=== PATIENT | female | born 1985 | race Caucasian/White ===

== ENCOUNTER → 2017-04-11 | Outpatient (CLI) | payer OTHER ==
[~2017-04-11] MED LIST: ANAPROX DS550 MG PO; BIRTH CONTROL1 EAC1 PO; CARAFATE1 G1 PO; CEFDINIR300 MG PO; ENSKYCE 28 TAB1 EACH PO; MACROBID100 M1 PO; MEDROL DOSEPAK4 MG PO; OMEPRAZOLE40 MG PO; PROVENTIL0.09 MG/A1 INH
[2017-04-11 13:38] LABS: HEMATOCRIT 39.7 % (37.0-47.0); MEAN CELL VOLUME 83.9 fl (81.0-99.0); MEAN CORPUSCULAR HGB 27.5 pg (27.0-31.0); MEAN CORPUSCULAR HGB CONC 32.7 g/dl (33.0-37.0); MEAN PLATELET VOLUME 11.6 fl (9.6-12.3); RED BLOOD COUNT 4.73 10*6/uL (4.10-5.10); RED CELL DISTRI WIDTH 13.6 % (0-14.5); WHITE BLOOD COUNT 6.8 10*3/uL (4.8-10.8)
[2017-04-11 13:57] LABS: HEMOGLOBIN A1c 5.4 % (4.8-5.6)
[2017-04-11 14:06] LABS: ALBUMIN 3.8 gm/dl (3.1-4.5); ALKALINE PHOSPHATASE 53 U/L (45-117); BILIRUBIN, TOTAL 0.3 mg/dl (0.2-1.0); BUN 13 mg/dl (7-24); CARBON DIOXIDE 27 mmol/L (21-32); CHLORIDE 110 mmol/L (98-107); EST GLOM FILT AFRICAN AMERICAN > 60 ml/min; GLUCOSE 79 mg/dL (65-99); POTASSIUM 4.2 mmol/L (3.5-5.1); SGOT/AST 10 IU/L (3-35); SGPT/ALT 16 U/L (12-78); SODIUM 140 mmol/L (136-145); TOTAL PROTEIN 7.1 gm/dL (6.4-8.2)
== END | disposition home or self-care (01) ==
LOC: LAB 12:24
PROVIDERS: Family Medicine
DX: F41.1 Generalized anxiety disorder (principal); R63.5 Abnormal weight gain; R53.83 Other fatigue; R79.89 Other specified abnormal findings of blood chemistry

== ENCOUNTER → 2017-05-27 | Outpatient (CLI) | payer OTHER | END | disposition home or self-care (01) | LOC: RAD 07:51 | DX: K21.9 Gastro-esophageal reflux disease without esophagitis (principal) ==

== ENCOUNTER → 2018-03-13 | Outpatient (CLI) | payer OTHER | END | disposition home or self-care (01) | LOC: ORTHO 03:27 | DX: M25.562 Pain in left knee (principal) ==

== ENCOUNTER 2018-06-07 20:29 | Emergency (ER) | payer OTHER ==
[~2018-06-07] VITALS: Ht 147.3 cm; Wt 63.5 kg
[2018-06-07] MEDS ORDERED: CEFADROXIL500 M1 PO (21:31)
== END 2018-06-07 21:57 | disposition home or self-care (01) ==
LOC: ED 20:29
DX: S61.412A Laceration without foreign body of left hand, initial encounter (principal); Z79.899 Other long term (current) drug therapy; Z79.2 Long term (current) use of antibiotics; W26.0XXA Contact with knife, initial encounter; Y93.89 Activity, other specified; Y92.89 Other specified places as the place of occurrence of the external cause; Y99.8 Other external cause status

== ENCOUNTER → 2018-08-11 | Outpatient (CLI) | payer OTHER ==
[~2018-08-11] MED LIST changes: +CEFADROXIL500 M1 PO
[2018-08-11 12:30] LABS: HEMATOCRIT 38.6 % (37.0-47.0); HEMOGLOBIN 12.8 g/dl (12.0-16.0); MEAN CELL VOLUME 83.9 fl (81.0-99.0); MEAN CORPUSCULAR HGB 27.8 pg (27.0-31.0); MEAN CORPUSCULAR HGB CONC 33.2 g/dl (33.0-37.0); MEAN PLATELET VOLUME 10.8 fl (9.6-12.3); RED BLOOD COUNT 4.6 10*6/uL (4.10-5.10); RED CELL DISTRI WIDTH 13.5 % (0-14.5); WHITE BLOOD COUNT 7.1 10*3/uL (4.8-10.8)
[2018-08-11 13:03] LABS: ALBUMIN 3.4 gm/dl (3.1-4.5); ALKALINE PHOSPHATASE 59 U/L (45-117); BUN 11 mg/dl (7-24); CHLORIDE 109 mmol/L (98-107); CHOLESTEROL 146 mg/dL (<200); CREATININE 0.86 mg/dL (0.55-1.02); HDL CHOLESTEROL 40 mg/dl (40-60); LDL CHOLESTEROL 58 mg/dL (9-159); POTASSIUM 4.1 mmol/L (3.5-5.1); SGOT/AST 11 IU/L (3-35); SGPT/ALT 21 U/L (12-78); SODIUM 139 mmol/L (136-145); TOTAL PROTEIN 7.4 gm/dL (6.4-8.2); TRIGLYCERIDES 238 mg/dl (<150); VLDL CHOLESTEROL 48 mg/dL (6-40)
== END | disposition home or self-care (01) ==
LOC: LAB 12:10
PROVIDERS: Family Medicine
DX: Z13.220 Encounter for screening for lipoid disorders (principal); R06.83 Snoring; R53.83 Other fatigue; R63.5 Abnormal weight gain

== ENCOUNTER → 2019-05-28 | Outpatient (CLI) | payer OTHER | END | disposition home or self-care (01) | LOC: RAD 16:32 | DX: M54.5 Low back pain (principal); M54.6 Pain in thoracic spine ==

== ENCOUNTER → 2020-02-21 | Outpatient (CLI) | payer OTHER ==
[2020-02-21 08:24] LABS: HEMATOCRIT 40.3 % (37.0-47.0); MEAN CELL VOLUME 80.9 fl (81.0-99.0); MEAN CORPUSCULAR HGB 26.5 pg (27.0-31.0); MEAN CORPUSCULAR HGB CONC 32.8 g/dl (33.0-37.0); MEAN PLATELET VOLUME 10.4 fl (9.6-12.3); RED BLOOD COUNT 4.98 10*6/uL (4.10-5.10); RED CELL DISTRI WIDTH 13.8 % (0-14.5); WHITE BLOOD COUNT 7.4 10*3/uL (4.8-10.8)
[2020-02-21 09:04] LABS: ALBUMIN 3.5 gm/dl (3.1-4.5); ALKALINE PHOSPHATASE 81 U/L (45-117); BUN 14 mg/dl (7-24); CHLORIDE 110 mmol/L (98-107); CHOLESTEROL 139 mg/dL (<200); CREATININE 0.75 mg/dL (0.55-1.02); FREE T4 1.01 ng/dl (0.76-1.46); HDL CHOLESTEROL 27 mg/dl (40-60); LDL CHOLESTEROL 50 mg/dL (9-159); SGOT/AST 7 IU/L (3-35); SGPT/ALT 22 U/L (12-78); SODIUM 142 mmol/L (136-145); TOTAL PROTEIN 7.6 gm/dL (6.4-8.2); TRIGLYCERIDES 312 mg/dl (<150); VLDL CHOLESTEROL 62 mg/dL (6-40)
[2020-02-21 09:14] LABS: VITAMIN D, 25-HYDROXY 22.9 ng/mL (30-100)
== END | disposition home or self-care (01) ==
LOC: LAB 08:05
PROVIDERS: Family Medicine
DX: Z13.220 Encounter for screening for lipoid disorders (principal); R53.83 Other fatigue; D64.9 Anemia, unspecified; E55.9 Vitamin D deficiency, unspecified; K21.9 Gastro-esophageal reflux disease without esophagitis

== ENCOUNTER → 2020-12-31 | Outpatient (CLI) | payer OTHER ==
[2020-12-31 09:08] LABS: HEMATOCRIT 40.2 % (37.0-47.0); MEAN CELL VOLUME 80.1 fl (81.0-99.0); MEAN CORPUSCULAR HGB 26.7 pg (27.0-31.0); MEAN CORPUSCULAR HGB CONC 33.3 g/dl (33.0-37.0); MEAN PLATELET VOLUME 10.6 fl (9.6-12.3); RED BLOOD COUNT 5.02 10*6/uL (4.10-5.10); RED CELL DISTRI WIDTH 13.7 % (0-14.5); WHITE BLOOD COUNT 7.2 10*3/uL (4.8-10.8)
[2020-12-31 09:26] LABS: ALBUMIN 3.6 gm/dl (3.1-4.5); ALKALINE PHOSPHATASE 73 U/L (45-117); BUN 11 mg/dl (7-24); CHLORIDE 109 mmol/L (98-107); CHOLESTEROL 149 mg/dL (<200); CREATININE 0.85 mg/dL (0.55-1.02); LDL CHOLESTEROL 75 mg/dL (9-159); POTASSIUM 4.1 mmol/L (3.5-5.1); SGOT/AST 15 IU/L (3-35); SGPT/ALT 21 U/L (12-78); SODIUM 140 mmol/L (136-145); TOTAL PROTEIN 7.7 gm/dL (6.4-8.2); TRIGLYCERIDES 188 mg/dl (<150)
== END | disposition home or self-care (01) ==
LOC: LAB 08:52
PROVIDERS: ATTEND Nurse Practitioner Family
DX: E78.00 Pure hypercholesterolemia, unspecified (principal); E55.9 Vitamin D deficiency, unspecified; R73.03 Prediabetes

== ENCOUNTER → 2021-03-30 | Outpatient (CLI) | payer OTHER | END | disposition home or self-care (01) | LOC: LAB 13:54 | PROVIDERS: ATTEND Family Medicine | DX: F32.9 Major depressive disorder, single episode, unspecified (principal); F41.9 Anxiety disorder, unspecified; R53.83 Other fatigue; G47.9 Sleep disorder, unspecified ==

== ENCOUNTER → 2021-07-06 | Outpatient (CLI) | payer OTHER ==
[~2021-07-06] MED LIST changes: +PROZAC40 M1 PO
== END | disposition home or self-care (01) ==
LOC: COVID19 15:26
PROVIDERS: ATTEND Internal Medicine
DX: Z11.52 Encounter for screening for COVID-19 (principal)

== ENCOUNTER 2021-08-19 19:43 | Emergency (ER) | payer OTHER ==
[~2021-08-19] VITALS: Ht 147.3 cm; Wt 56.7 kg
[2021-08-19 21:20] LABS: BASO % 0.5 % (0.0-1.0); EOS % 0.7 % (1.0-4.0); HEMATOCRIT 38.8 % (37.0-47.0); LYMPH # 0.6 10*3/uL (1.3-4.4); LYMPH % 14.4 % (27.0-41.0); MEAN CELL VOLUME 82.9 fl (81.0-99.0); MEAN CORPUSCULAR HGB 27.4 pg (27.0-31.0); MEAN PLATELET VOLUME 10.4 fl (9.6-12.3); MONO # 0.6 10*3/uL (0.1-1.0); MONO % 13.8 % (3.0-9.0); NEUT # 3.1 10*3/uL (2.3-7.9); NEUT % 70.1 % (47.0-73.0); PLATELET COUNT AUTOMATED 148 10*3/uL (130-400); RED BLOOD COUNT 4.68 10*6/uL (4.10-5.10); RED CELL DISTRI WIDTH 13.5 % (0-14.5); WHITE BLOOD COUNT 4.4 10*3/uL (4.8-10.8)
[2021-08-19 21:35] LABS: ALBUMIN 3.9 gm/dl (3.1-4.5); ALKALINE PHOSPHATASE 74 U/L (45-117); BUN 7 mg/dl (7-24); CHLORIDE 107 mmol/L (98-107); POTASSIUM 3.7 mmol/L (3.5-5.1); SGOT/AST 41 IU/L (3-35); SGPT/ALT 86 U/L (12-78); SODIUM 139 mmol/L (136-145); TOTAL PROTEIN 7.5 gm/dL (6.4-8.2)
[2021-08-19 21:37] LABS: B-hCG (QUALITATIVE) NEGATIVE (NEGATIVE)
[2021-08-19 22:30] LABS: BILIRUBIN Negative (Negative); BLOOD Negative (Negative); CLARITY Clear (Clear); COLOR Yellow (Yellow); GLUCOSE Negative (Negative); KETONE Negative (Negative); LEUKO ESTERASE Trace (Negative); NITRITE Negative (Negative); PH 6.5 (4.5-8.0); SPECIFIC GRAVITY <= 1.005 (1.001-1.030); UROBILINOGEN 0.2 E.U./dl (0.0-1.0)
== END 2021-08-19 23:23 | disposition home or self-care (01) ==
LOC: ED 19:43
PROVIDERS: Emergency Medicine
DX: U07.1 COVID-19 (principal)

== ENCOUNTER → 2021-08-19 | Outpatient (CLI) | payer OTHER | END | disposition home or self-care (01) | LOC: COVID19 16:05 | PROVIDERS: ATTEND Internal Medicine | DX: Z20.822 Contact with and (suspected) exposure to COVID-19 (principal) ==

== ENCOUNTER → 2022-02-10 | Outpatient (CLI) | payer OTHER ==
[2022-02-10 17:37] LABS: HEMATOCRIT 40.8 % (37.0-47.0); MEAN CELL VOLUME 81.9 fl (81.0-99.0); MEAN CORPUSCULAR HGB 26.5 pg (27.0-31.0); MEAN CORPUSCULAR HGB CONC 32.4 g/dl (33.0-37.0); MEAN PLATELET VOLUME 10.4 fl (9.6-12.3); RED BLOOD COUNT 4.98 10*6/uL (4.10-5.10); RED CELL DISTRI WIDTH 14.4 % (0-14.5); WHITE BLOOD COUNT 9.5 10*3/uL (4.8-10.8)
[2022-02-10 17:58] LABS: ALKALINE PHOSPHATASE 65 U/L (45-117); BUN 20 mg/dl (7-24); CHLORIDE 109 mmol/L (98-107); CHOLESTEROL 161 mg/dL (<200); CREATININE 0.71 mg/dL (0.55-1.02); LDL CHOLESTEROL 98 mg/dL (9-159); SGOT/AST 23 IU/L (3-35); SGPT/ALT 73 U/L (12-78); SODIUM 139 mmol/L (136-145); TOTAL PROTEIN 7.6 gm/dL (6.4-8.2); TRIGLYCERIDES 71 mg/dl (<150)
[2022-02-10 18:06] LABS: FREE T4 0.78 ng/dl (0.76-1.46)
[2022-02-10 19:50] LABS: VITAMIN D, 25-HYDROXY 24.6 ng/mL (30-100)
== END | disposition home or self-care (01) ==
LOC: LAB 17:19
PROVIDERS: ATTEND Family Medicine
DX: Z00.00 Encounter for general adult medical examination without abnormal findings (principal); G62.9 Polyneuropathy, unspecified

== ENCOUNTER → 2022-11-09 | Outpatient (CLI) | payer OTHER ==
[2022-11-09 12:16] LABS: HEMATOCRIT 41.5 % (37.0-47.0); MEAN CORPUSCULAR HGB 25.6 pg (27.0-31.0); MEAN PLATELET VOLUME 10.7 fl (9.6-12.3); RED BLOOD COUNT 5.19 10*6/uL (4.10-5.10); RED CELL DISTRI WIDTH 15.1 % (0-14.5); WHITE BLOOD COUNT 6.8 10*3/uL (4.8-10.8)
[2022-11-09 12:32] LABS: ALKALINE PHOSPHATASE 75 U/L (46-116); BUN 12 mg/dl (9-23); CHLORIDE 108 mmol/L (98-107); CHOLESTEROL 169 mg/dL (<200); LDL CHOLESTEROL 103 mg/dL (9-159); POTASSIUM 4.2 mmol/L (3.4-5.1); SGPT/ALT 49 U/L (10-49); TOTAL PROTEIN 7.5 gm/dL (6.0-8.0); TRIGLYCERIDES 122 mg/dl (<150)
[2022-11-11 00:06] LABS: FACTOR V ACTIVITY 91 % (70-150); PROTEIN S, FREE 86 % (61-136); PROTEIN S, TOTAL 63 % (60-150)
[2022-11-12 07:07] LABS: PROTEIN C, ANTIGEN 115 % (60-150)
== END | disposition home or self-care (01) ==
LOC: LAB 11:42
PROVIDERS: ATTEND Family Medicine
DX: S04.012A Injury of optic nerve, left eye, initial encounter (principal); Z13.220 Encounter for screening for lipoid disorders; F41.1 Generalized anxiety disorder; E74.00 Glycogen storage disease, unspecified; H47.10 Unspecified papilledema; X58.XXXA Exposure to other specified factors, initial encounter; Y93.89 Activity, other specified; Y92.89 Other specified places as the place of occurrence of the external cause; Y99.8 Other external cause status

== ENCOUNTER → 2022-11-17 | Outpatient (CLI) | payer OTHER | LOC: ORTHO 02:00 | PROVIDERS: ATTEND Orthopaedic Surgery | DX: M79.641 Pain in right hand (principal) ==

== ENCOUNTER → 2022-11-22 | Outpatient (CLI) | payer OTHER | END | disposition home or self-care (01) | LOC: MRI 12:46 | PROVIDERS: ATTEND Family Medicine | DX: G93.2 Benign intracranial hypertension (principal); H53.122 Transient visual loss, left eye; H47.13 Papilledema associated with retinal disorder ==

== ENCOUNTER → 2023-04-06 | Day surgery (SDC) | payer OTHER ==
[2023-04-05 14:04] VITALS: BP 121/74
[~2023-04-06] VITALS: Ht 147.3 cm; Wt 68.0 kg
[~2023-04-06] MED LIST changes: +LOSARTAN POTAS100 M1 PO; +TRAMADOL HCL50 MG PO; +VIBRAMYCIN HYC100 MG PO; +XARELTO10 MG PO
[2023-04-06 10:26] VITALS: BP 134/67
[2023-04-06 13:40] VITALS: BP 137/70
[2023-04-06 13:54] VITALS: BP 122/65
[2023-04-06 14:10] VITALS: BP 122/76
[2023-04-06 14:25] VITALS: BP 115/66
[2023-04-06 14:40] VITALS: BP 111/61
== END | disposition home or self-care (01) ==
LOC: SDC 04-05 13:15
PROVIDERS: ATTEND Podiatrist
DX: S82.851A Displaced trimalleolar fracture of right lower leg, initial encounter for closed fracture (principal); K21.9 Gastro-esophageal reflux disease without esophagitis; G43.909 Migraine, unspecified, not intractable, without status migrainosus; I10 Essential (primary) hypertension; F41.9 Anxiety disorder, unspecified; F32.A Depression, unspecified; Z87.891 Personal history of nicotine dependence; X58.XXXA Exposure to other specified factors, initial encounter; Y93.89 Activity, other specified; Y92.89 Other specified places as the place of occurrence of the external cause; Y99.8 Other external cause status

== ENCOUNTER → 2023-08-17 | Outpatient (CLI) | payer OTHER ==
[2023-08-17 10:40] LABS: HEMATOCRIT 37.2 % (37.0-47.0); MEAN CORPUSCULAR HGB 26.3 pg (27.0-31.0); MEAN CORPUSCULAR HGB CONC 31.7 g/dl (33.0-37.0); MEAN PLATELET VOLUME 11.4 fl (9.6-12.3); RED BLOOD COUNT 4.48 10*6/uL (4.10-5.10); RED CELL DISTRI WIDTH 15.6 % (0-14.5); WHITE BLOOD COUNT 7.9 10*3/uL (4.8-10.8)
[2023-08-17 11:38] LABS: ALKALINE PHOSPHATASE 79 U/L (46-116); BUN 8 mg/dl (9-23); CHLORIDE 107 mmol/L (98-107); FREE T4 0.88 ng/dl (0.89-1.76); POTASSIUM 4.2 mmol/L (3.4-5.1); SGPT/ALT 13 U/L (5-49); TOTAL PROTEIN 6.5 gm/dL (6.0-8.0); VITAMIN D, 25-HYDROXY 39.6 ng/mL (30-100)
== END | disposition home or self-care (01) ==
LOC: LAB 10:15
PROVIDERS: ATTEND Family Medicine
DX: Z34.90 Encounter for supervision of normal pregnancy, unspecified, unspecified trimester (principal); E55.9 Vitamin D deficiency, unspecified; R53.83 Other fatigue; M25.50 Pain in unspecified joint; M79.10 Myalgia, unspecified site; D51.9 Vitamin B12 deficiency anemia, unspecified; G60.9 Hereditary and idiopathic neuropathy, unspecified; R20.2 Paresthesia of skin; Z3A.00 Weeks of gestation of pregnancy not specified

== ENCOUNTER → 2023-09-13 | Outpatient (CLI) | payer OTHER ==
[2023-09-13 11:44] LABS: HEMATOCRIT 38.4 % (37.0-47.0); MEAN CELL VOLUME 80.5 fl (81.0-99.0); MEAN CORPUSCULAR HGB 25.6 pg (27.0-31.0); MEAN CORPUSCULAR HGB CONC 31.8 g/dl (33.0-37.0); MEAN PLATELET VOLUME 10.5 fl (9.6-12.3); RED BLOOD COUNT 4.77 10*6/uL (4.10-5.10); RED CELL DISTRI WIDTH 14.2 % (0-14.5); WHITE BLOOD COUNT 7.1 10*3/uL (4.8-10.8)
[2023-09-13 12:21] LABS: ALKALINE PHOSPHATASE 84 U/L (46-116); BUN 7 mg/dl (9-23); CHLORIDE 109 mmol/L (98-107); CHOLESTEROL 171 mg/dL (<200); LDL CHOLESTEROL 94 mg/dL (9-159); POTASSIUM 3.8 mmol/L (3.4-5.1); SGPT/ALT 19 U/L (5-49); TOTAL PROTEIN 6.9 gm/dL (6.0-8.0); TRIGLYCERIDES 182 mg/dl (<150)
== END | disposition home or self-care (01) ==
LOC: LAB 11:27
PROVIDERS: ATTEND Family Medicine
DX: I10 Essential (primary) hypertension (principal); E78.00 Pure hypercholesterolemia, unspecified

== ENCOUNTER → 2024-01-27 | Outpatient (CLI) | payer OTHER | END | disposition home or self-care (01) | LOC: RAD 10:35 | PROVIDERS: ATTEND Chiropractor | DX: M54.6 Pain in thoracic spine (principal); M54.50 Low back pain, unspecified; I87.8 Other specified disorders of veins ==

== ENCOUNTER → 2024-04-25 | Outpatient (CLI) | payer OTHER ==
[~2024-04-25] MED LIST changes: +GADOTERATE MEGLUMINE 7.5 MMOL/15 ML VIAL IV ONE
== END | disposition home or self-care (01) ==
LOC: MRI 04-20 14:00
PROVIDERS: ATTEND Nurse Practitioner Family
DX: G93.2 Benign intracranial hypertension (principal); R51.9 Headache, unspecified; I10 Essential (primary) hypertension

== ENCOUNTER → 2025-01-02 | Outpatient (CLI) | payer OTHER ==
[~2025-01-02] MED LIST changes: -GADOTERATE MEGLUMINE 7.5 MMOL/15 ML VIAL IV ONE
== END | disposition home or self-care (01) ==
LOC: MAMMO 10:16
PROVIDERS: ATTEND Nurse Practitioner Women's Health
DX: Z12.31 Encounter for screening mammogram for malignant neoplasm of breast (principal); R92.313 Mammographic fatty tissue density, bilateral breasts